=== PATIENT | male | born 1945 | race Caucasian/White ===

== ENCOUNTER 2021-07-14 02:17 | Emergency (ER) | payer MEDICARE ==
[2021-07-14 03:39] LABS: HEMOGLOBIN 14.7 gm/dl (14.0-17.5); RED BLOOD COUNT 4.9 M/UL (4.20-5.50); WHITE BLOOD COUNT 8.7 K/UL (4.5-11.0)
[2021-07-14] MEDS ORDERED: CEFUROXIME500 MG PO (04:22)
== END 2021-07-14 04:30 | disposition home or self-care (01) ==
LOC: ER1 02:17
PROVIDERS: Physician Assistant
DX: N39.0 Urinary tract infection, site not specified (principal); R33.9 Retention of urine, unspecified; R31.9 Hematuria, unspecified; I10 Essential (primary) hypertension; I73.9 Peripheral vascular disease, unspecified; Z79.01 Long term (current) use of anticoagulants
CPT/HCPCS: 51702; 80048; 81001; 85025; 87086; 99283

== ENCOUNTER → 2022-07-03 | Day surgery (SDC) | payer OTHER, MEDICARE ==
[~2022-07-03] MED LIST: CEFUROXIME500 MG PO; COZAAR 50MG TAB50 MG PO; FLOMAX0.4 MG PO; NORVASC2.5 MG PO; OMEPRAZOLE20 M1 PO; PROSCAR5 MG PO; ZOLOFT25 MG PO
== END | disposition home or self-care (01) ==
LOC: OR 07:36
DX: Z12.11 Encounter for screening for malignant neoplasm of colon (principal); D12.2 Benign neoplasm of ascending colon; K22.70 Barrett's esophagus without dysplasia; K22.81 Esophageal polyp; K64.1 Second degree hemorrhoids; K44.9 Diaphragmatic hernia without obstruction or gangrene; K21.00 Gastro-esophageal reflux disease with esophagitis, without bleeding; Q05.9 Spina bifida, unspecified; I10 Essential (primary) hypertension; Z86.010 Personal history of colon polyps; Z79.899 Other long term (current) drug therapy
CPT/HCPCS: J2704; J7040